=== PATIENT | male | born 1995 | race Hispanic/Latino ===

== ENCOUNTER 2021-12-29 11:48 | Emergency (ER) | payer SELFPAY ==
--- OUTSIDE RECORDS SUMMARY | 2021-12-29 11:51 | XMS REPORT | Continuity of Care Document ---
:1995 Author Organization [facility] t Address [address] [place] [address] [address] [place] [address] Care Team Providers Name Role Phone Provider, Unknown Primary Care Physician Unavailable ESTHER LOCKETT Attending Clinician Unavailable Problems This patient has no known problems. Allergies, Adverse Reactions, Alerts This patient has no known allergies or adverse reactions. Social History Social Habit Start Date Stop Date Quantity Comments Source History of Occasional tobacco Method ist tobacco use smoker Hospital Tobacco use and 2020-10-30 2020-10-30 Smokeless tobacco [facility] exposure 00:00:00 00:00:00 non-user Hospital Alcohol intake 2020-10-30 2020-10-30 Current drinker of [facility] 00:00:00 00:00:00 alcohol (finding) Hospita l Sex Assigned At [birth year] [employer] 00:00:00 00:00:00 Hospital Smoking Status Start Date Stop Date Source Occasional tobacco smoker 2020-10-30 00:00:00 [facility] Medications Ordered Filled Start Stop Current Ordering Indication Dosage Frequency Signature Comments Components Source Medication Medication Date Date Medication? Clinician (SIG) Name Name No known No No known Metho di medications 10-[address] 17:43: s Hospita 02 l Procedures This patient has no known procedures. Encounters Start End Encounter Admission Attending Care Care Encounter Source Date/Time Date/Time Type Type Clinicians Facility Department ID 2020-10-30 2020-10-30 Emergency ESTHER LOCKETT [facility] [id number] [place] 00:00:00 00:00:[address] Results This patient has no known results.
--- NOTE | 2021-12-29 14:36 | RAD REPORT ---
EXAM DESCRIPTION: RAD - Knee Left 3 View - 12/29/2021 2:27 pm CLINICAL HISTORY: knee pain, trauma COMPARISON: No comparisons FINDINGS: No fracture or dislocation seen.
--- NOTE | 2021-12-29 14:37 | RAD REPORT ---
EXAM DESCRIPTION: RAD - Femur Left - 12/29/2021 2:27 pm CLINICAL HISTORY: leg injury COMPARISON: No comparisons FINDINGS: No fracture or dislocation seen. Soft tissue swelling is seen superior to the patella.
--- NOTE | 2021-12-29 15:28 | EDPHYS ---
Physician Documentation [facility] Name: Ac Willis Age: 26 yrs Sex: Male : 1995 Arrival Date: 12/29/2021 Time: 11:50 Bed 9 Private MD: ED Physician Gerardo Cottrell HPI: 12/29 12:27 This 26 yrs old Male presents to ER via Wheelchair with complaints of Leg jmm Injury. 12:27 The patient presents with an injury. Onset: The symptoms/episode began/occurred jmm acutely, just prior to arrival. A 26-year-old male with no chronic medical conditions and presents emerged part with complaints of left thigh and knee pain. Pain began after a blunt trauma occurred. Patient now has difficulty putting weight on his left leg. Denies other known injury. Historical: - Allergies: 12:26 No Known Allergies; ph - Immunization history:: Adult Immunizations up to date. - Social history:: Smoking status: Reported history of juuling and/or vaping. ROS: 12:27 Constitutional: Negative for fever, chills, and weight loss, Cardiovascular: Negative jmm for chest pain, palpitations, and edema, Respiratory: Negative for shortness of breath, cough, wheezing, and pleuritic chest pain. 12:27 MS/extremity: Positive for injury or acute deformity. 12:27 All other systems are negative. Exam: 12:27 Constitutional: This is a well developed, well nourished patient who is awake, alert, jmm and in no acute distress. Head/Face: atraumatic. Eyes: EOMI, no conjunctival erythema appreciated ENT: Moist Mucus Membranes Neck: Trachea midline, Supple Chest/axilla: Normal chest wall appearance and motion. Cardiovascular: Regular rate and rhythm. No edema appreciated Respiratory: Normal respirations, no respiratory distress appreciated Abdomen/GI: Non distended Back: Normal ROM Skin: General appearance color normal 12:27 Musculoskeletal/extremity: ROM: intact in all extremities, Full range of motion noted to the left knee, compartments are soft, tenderness appreciated on palpation of the left anterior thigh, no obvious deformity appreciated, full dorsalis pedis pulse, neurovascular intact. 12:27 Skin: Appearance: Color: normal in color. 12:27 Neuro: Orientation: is normal, Mentation: is normal, Memory: is normal. 12:27 Psych: Behavior/mood is pleasant, cooperative. Vital Signs: 12:23 BP 123 / 92; Pulse 89; Resp 18; Temp 98.2; Pulse Ox 99% on R/A; Weight 104.33 kg; ph Height 5 ft. 10 in. (177.80 cm); 12:23 Body Mass Index 33.00 (104.33 kg, 177.80 cm) ph MDM: 12:27 Patient medically screened. [facility] 15:26 Data reviewed: vital signs, nurses notes. Counseling: I had a detailed discussion with isaiah the patient and/or guardian regarding: the historical points, exam findings, and any diagnostic results supporting the discharge/admit diagnosis, radiology results, the need for outpatient follow up, to return to the emergency department if symptoms worsen or persist or if there are any questions or concerns that arise at home. 12/29 12:28 Order name: Femur Left XRAY; Complete Time: 14:[address] [facility] 12/29 12:28 Order name: Knee Left 3 View XRAY; Complete Time: 14:[address] [facility] 12/29 15:16 Order name: Stephen wrap-joint; Complete Time: 15:[address] [facility] Administered Medications: No medications were administered Disposition: 16:53 Co-signature as Attending Physician, Gerardo Cottrell DO I was immediately available on-site ms3 in the emergency department for consultation in the care of the patient.. Disposition Summary: 12/29/21 15:27 Discharge Ordered Location: Home [facility] Condition: Stable [facility] Diagnosis - Pain in left leg [facility] Followup: [facility] - With: Kris Gary MD - When: 2 - 3 days - Reason: Recheck today's complaints, Continuance of care, Re-evaluation by your physician Discharge Instructions: - Discharge Summary Sheet [facility] - Musculoskeletal Pain [facility] - Acute Knee Pain, Adult [facility] Forms: - Medication Reconciliation Form [facility] - Thank You Letter [facility] - Antibiotic Education [facility] - Prescription Opioid Use [facility] Prescriptions: - Diclofenac Sodium 75 mg Oral Tablet Sustained Release - take 1 tablet by ORAL route 2 times per day; 30 tablet; Refills: 0, Product [facility] Selection Permitted Signatures: Dispatcher [employer] Angus Adam PA PA jmm Hall, Patricia, RN RN ph Gerardo Cottrell DO DO ms3
--- NOTE | 2021-12-29 15:28 | ER ---
Nurse's Notes [facility] Name: Ac Willis Age: 26 yrs Sex: Male : 1995 Arrival Date: 12/29/2021 Time: 11:50 Bed 9 Private MD: Diagnosis: Pain in left leg Presentation: 12/29 12:23 Chief complaint: Patient states: Was working on a barbed wire fence today, was pulling ph a post from the ground which hit him above to L knee. Coronavirus screen: Vaccine status: Patient reports receiving the 2nd dose of the covid vaccine. Ebola Screen: No symptoms or risks identified at this time. Initial Sepsis Screen: Does the patient meet any 2 criteria? No. Patient's initial sepsis screen is negative. Does the patient have a suspected source of infection? No. Patient's initial sepsis screen is negative. Risk Assessment: Do you want to hurt yourself or someone else? Patient reports no desire to harm self or others. Onset of symptoms was December 29, 2021. 12:23 Method Of Arrival: Wheelchair ph 12:23 Acuity: LESLIE 4 ph Historical: - Allergies: 12:26 No Known Allergies; ph - Immunization history:: Adult Immunizations up to date. - Social history:: Smoking status: Reported history of juuling and/or vaping. Screenin:19 Abuse screen: Denies threats or abuse. Denies injuries from another. Nutritional hb screening: No deficits noted. Tuberculosis screening: No symptoms or risk factors identified. Fall Risk None identified. Assessment: 15:00 General: Appears in no apparent distress. Behavior is calm, cooperative. Pain: Pain hb currently is 4 out of 10 on a pain scale. 15:00 Neuro: Level of Consciousness is awake, alert, obeys commands, Oriented to person, hb place, time, situation. Cardiovascular: Patient's skin is warm and dry. Respiratory: Respiratory effort is even, unlabored, Respiratory pattern is regular, symmetrical. GI: No signs and/or symptoms were reported involving the gastrointestinal system. : No signs and/or symptoms were reported regarding the genitourinary system. EENT: No signs and/or symptoms were reported regarding the EENT system. Derm: Skin is pink, warm \T\ dry. Musculoskeletal: Reports left knee pain. Vital Signs: 12:23 BP 123 / 92; Pulse 89; Resp 18; Temp 98.2; Pulse Ox 99% on R/A; Weight 104.33 kg; ph Height 5 ft. 10 in. (177.80 cm); 12:23 Body Mass Index 33.00 (104.33 kg, 177.80 cm) ED Course: 11:50 Patient arrived in ED. rg4 11:52 Angus Hassan PA is PHCP. [facility] 11:52 Gerardo Cottrell DO is Attending Physician. [facility] 12:26 Triage completed. ph 12:26 Arm band placed on Patient placed in an exam room. ph 14:19 Yaneth Humphrye, RN is Primary Nurse. hb 14:29 Femur Left XRAY In Process Unspecified. EDMS 14:29 Knee Left 3 View XRAY In Process Unspecified. EDMS 15:00 Patient has correct armband on for positive identification. hb 15:26 Kris Gary MD is Referral Physician. [facility] 15:43 No provider procedures requiring assistance completed. Patient did not have IV access hb during this emergency room visit. Administered Medications: No medications were administered Medication: 15:00 VIS not applicable for this client. hb Outcome: 15:27 Discharge ordered by . [facility] 15:43 Discharged to home via wheelchair, with family. 15:43 Condition: stable 15:43 Discharge instructions given to patient, Instructed on discharge instructions, follow up and referral plans. medication usage, Demonstrated understanding of instructions, follow-up care, medications, Prescriptions given X 1. 15:43 Patient left the ED. hb Signatures: Dispatcher [employer] EDFL Angus Hassan PA PA Amie Mendez RN RN Yaneth Humphrey, RN RN Stephanie Kang rg4
[2021-12-29 16:37] VITALS: BP 123/92; TEMP 98.2; O2SAT 99
== END 2021-12-29 15:43 | disposition home or self-care (01) ==
LOC: ER 11:48
DX: M79.605 Pain in left leg (principal)
CPT/HCPCS: 99283